=== PATIENT | male | born 1985 | race Caucasian/White ===

== ENCOUNTER 2025-06-04 09:16 | Emergency (ER) | payer MEDICAID ==
[~2025-06-04] VITALS: Ht 170.2 cm; Wt 67.9 kg
[2025-06-04 09:21] VITALS: BP 120/85; PULSE 88; RESP 16; TEMP 97.5; O2SAT 100
--- NOTE | 2025-06-04 09:42 | Physician Documentation ---
History of Present Illness ~ Chief Complaint: Rash Stated Complaint: SKIN ISSUES Time Seen by MD: 09:31 OK to notify your PCP?: Yes Source: patient Mode of Arrival: POV Exam Limitations: no limitations HPI Chief Complaint: Rash Caveat: None Independent Historians: None History of Present Illness: Patient is a 40-year-old man who comes in complaining of a diffuse rash that itches on his extremity and torso. Rash began two weeks ago. Patient denies being in contact with poison oak. Patient denies any new detergents or soaps. Patient does not have any difficulties breathing. Patient denies any intraoral lesions. Rashes on the dorsal aspect of the hands in the feet but spares the palms. Patient denies ever having had this sort rash. Review of systems: All systems were reviewed and are negative except for what is indicated in the history of present illness. Past Medical History: None Past Surgical History: None Social History: Works at [employer], denies drug use. Medications: Reviewed as documented Nursing Notes Allergies: Reviewed as documented in Nursing Notes Medication Reconciliation Allergies: Coded Allergies: baclofen (Verified Allergy, Unknown, tongue swelling, 06/04/25) Review of Systems All Other Systems at this time: Reviewed and Negative ROS Patient denies any other acute symptoms other than above. All other systems are negative Physical Exam Vital Signs: RN Vital Signs have been reviewed: Yes, Temperature: 97.5, Source: Temporal, Heart Rate: 88, Respiratory Rate: 16, BP: 120/85, Pulse Oximetry: 100, Weight: 67.900 Oxygen Flow Rate: 0 Pulse Oximetry Reflects: adequate oxygenation Physical Exam General Appearance: Mild distress HEENT: Normal OP, moist oral mucosa, PERRL, EOMI, no intraoral lesions Neck: supple, normal ROM, trachea midline Pulmonary: No respiratory distress, CTA, BS equal Cardiac: RRR, no murmur, rub or gallop, Extremities: normal ROM, no swelling, non-tender Skin: intact, dry, warm, diffuse fine dry appearing eczema like rash but on all surfaces of the extremities. Rash is fine and raised. No erythema. No vesicles. No petechiae. Rash is dry. Spares the palms and soles. Neuro: AAOx3, speech is clear, no focal motor weakness Psych: normal affect, good eye contact, no apparent hallucination, normal speech Progress Results/Orders Results/Orders Completed Orders - CHARLES,SIRISHA R MD Triamcinolone Acet 40mg/Ml Inj (Kenalog- (06/04/25 09:40) Vital Signs 06/04/25 09:21 Temp 97.5 Pulse 88 Resp 16 B/P (MAP) 120/85 Pulse Ox 100 O2 Flow Rate 0 Medical Decision Making Additional info obtained from: other (None) Findings Differential diagnosis includes but is not limited to: Contact dermatitis, allergic reaction, erythema, [place] syndrome, eczema, viral exanthem Emergency department course/medical decision-making: Patient is a 40-year-old man who presents with a rash that appears similar to eczema. However the rash appears on almost all services of his extremities and torso. Rash isn't urticarial or petechial. Rash appears to be consistent with a contact dermatitis. Skin appears to be very dry. Patient has never had this before. Unable to identify any eliciting antigen. Patient will be given Kenalog 40 mg IM. Rash is likely a contact dermatitis. Patient will be referred to his primary care doctor to get referred to Dermatology. Patient is stable for discharge. Differential Dx:Considerations: Include: Other (See above) Departure Time of Disposition: 09:41 Disposition: 01 HOME / SELF CARE / HOMELESS Impression: Primary Impression: Allergic contact dermatitis Qualified Codes: L23.9 - Allergic contact dermatitis, unspecified cause Condition: Stable Discharge Instructions: Contact Dermatitis Additional Instructions: YOU MAY HAVE A CONTACT DERMATITIS. CAUSE IS UNKNOWN. RECOMMEND YOU FOLLOW UP WITH YOUR PRIMARY CARE DOCTOR. RECOMMEND YOU PURCHASE EUCERIN CREAM TO APPLY TO AFFECTED AREAS. Education Educated: Patient Educated regarding: diagnosis, treatment, need for follow up Signature Scribe Signature: NO SCRIBE Attestation: NO SCRIBE SIRISHA SOTO MD Jun 04, 2025 09:42
[2025-06-04] MEDS: triamcinolone acetonide 40mg/ml inj IM ONE (09:46)
== END 2025-06-04 09:54 | disposition home or self-care (01) ==
LOC: ER 09:18
DX: L23.9 Allergic contact dermatitis, unspecified cause (principal)
CPT/HCPCS: 96372; 99283; J3301